=== PATIENT | male | born 1950 | race Caucasian/White ===

== ENCOUNTER 2017-09-10 08:56 | Emergency (ER) | payer BC ==
[2017-09-10] MEDS ORDERED: PROPARACAINE HCL OPTH 15ML BTL OPTH ONE (09:32)
--- NOTE | 2017-09-10 09:34 | Emergency Department Record ---
History of Present Illness - General Chief complaint: Eye Problem Stated complaint: l eye infection Time Seen by Provider: 09/10/17 09:13 Source: Patient Mode of Arrival: Ambulatory Limitations: No limitations - History of Present Illness Initial comments: pt started getting a red eye and irritation 2 days ago while wearing contacs. he now has discharge. he also has a productive cough and yellow rhinitis chief complaint: Eye pain, Eye redness Onset/Timin -: Days(s) Onset Description: Gradual Location: Left eye Place: Home Eye Symptoms: Redness Consistency: Constant Context: Contact lens use Treatments Prior to Arrival: Removed contact lens - Related Data Hx Tetanus Toxoid Vaccination: Yes Patient Tetanus UTD (within 5 yrs): No Previous Rx's Medication Instructions Recorded Azithromycin [Zithromax] 250 mg PO DAILY #6 tab 09/10/17 Gentamicin Sulfate 1 drop EACH EYE QID #30 ml 09/10/17 Allergies Allergy/AdvReac Type Severity Reaction Status Date / Time No Known Drug Allergies Allergy Verified 09/10/17 09:09 Travel Screening - Travel/Exposure Within Last 30 Days Have you traveled within the last 30 days?: No - Travel/Exposure Within Last Year Have you traveled outside the [place] in the last year?: No - Additonal Travel Details Have you been exposed to anyone with a communicable illness?: No - Travel Symptoms Symptom Screening: None Review of Systems Reviewed: No additional complaints except as noted below Constitutional: Reports: As per HPI. Denies: Chills, Fever, Malaise, Night sweats, Weakness, Weight change Eyes: Reports: As per HPI, Eye discharge, Eye pain. Denies: Photophobia, Vision change ENT: Reports: As per HPI, Congestion. Denies: Dental pain, Ear pain, Epistaxis , Hearing loss, Throat pain Respiratory: Reports: As per HPI, Cough. Denies: Dyspnea, Hemoptysis, Stridor, Wheezes Cardiovascular: Reports: As per HPI. Denies: Arrhythmia, Chest pain, Dyspnea on exertion, Edema, Murmurs, Orthopnea, Palpitations, Paroxysmal nocturnal dyspnea, Rheumatic Fever, Syncope Endocrine: Reports: As per HPI. Denies: Fatigue, Heat or cold intolerance, Polydipsia, Polyuria Gastrointestinal: Reports: As per HPI. Denies: Abdominal pain, Constipation, Diarrhea, Hematemesis, Hematochezia, Melena, Nausea, Vomiting Genitourinary: Reports: As per HPI. Denies: Dysuria, Frequency, Hematuria, Incontinence, Retention, Testicular pain, Testicular mass, Urgency Musculoskeletal: Reports: As per HPI. Denies: Arthralgia, Back pain, Gout, Joint swelling, Myalgia, Neck pain Skin: Reports: As per HPI. Denies: Bruising, Change in color, Change in hair/ nails, Lesions, Pruritus, Rash Neurological: Reports: As per HPI. Denies: Abnormal gait, Confusion, Headache, Numbness, Paresthesias, Seizure, Tingling, Tremors, Vertigo, Weakness Psychiatric: Reports: As per HPI. Denies: Anxiety, Auditory hallucinations, Depression, Homicidal thoughts, Suicidal thoughts, Visual hallucinations Hematological/Lymphatic: Reports: As per HPI. Denies: Anemia, Blood Clots, Easy bleeding, Easy bruising, Swollen glands Past Medical History - SOCIAL HISTORY Smoking Status: Never smoker Alcohol Use: Rare Drug Use: None - RESPIRATORY Hx Respiratory Disorders: No - CARDIOVASCULAR Hx Cardio Disorders: Yes Hx Hypertension: Yes Comment:: high cholesterol - NEURO Hx Neuro Disorders: No - GI Hx GI Disorders: Yes Hx Reflux: Yes Comment:: dysphagia - Hx Genitourinary Disorders: Yes Hx Kidney Stones: Yes - ENDOCRINE Hx Endocrine Disorders: Yes - MUSCULOSKELETAL Hx Musculoskeletal Disorders: Yes Hx Arthritis: Yes - PSYCH Hx Psych Problems: No - HEMATOLOGY/ONCOLOGY Hx Hematology/Oncology Disorders: No Family Medical History Any Significant Family History?: No Hx Dementia: Father, Mother Hx Diabetes: Mother, Grandparents Physical Exam - General General Appearance: Alert, Oriented x3, Cooperative, Mild distress - Head Head exam: Normal inspection - Eye Eye exam: Normal appearance, PERRL, Conjunctival injection, EOMI, Other ( flourscein negative for abrasion aor ulcer) Pupils: Normal accommodation - ENT ENT exam: Normal exam, Mucous membranes moist, Normal external ear exam, Normal orophraynx, TM's normal bilaterally Ear exam: Normal external inspection. negative: External canal tenderness Nasal Exam: Normal inspection. negative: Discharge, Sinus tenderness Mouth exam: Normal external inspection, Tongue normal Teeth exam: Normal inspection. negative: Dental caries Throat exam: Normal inspection. negative: Tonsillar erythema, Tonsillar exudate - Neck Neck exam: Normal inspection, Full ROM. negative: Tenderness - Respiratory Respiratory exam: Normal lung sounds bilaterally. negative: Respiratory distress - Cardiovascular Cardiovascular Exam: Regular rate, Normal rhythm, Normal heart sounds - GI/Abdominal GI/Abdominal exam: Soft, Normal bowel sounds. negative: Tenderness - Rectal Rectal exam: Deferred - exam: Deferred - Extremities Extremities exam: Normal inspection, Full ROM, Normal capillary refill. negative: Tenderness - Back Back exam: Reports: Normal inspection, Full ROM. Denies: Muscle spasm, Rash noted, Tenderness - Neurological Neurological exam: Alert, Normal gait, Oriented X3, Reflexes normal - Psychiatric Psychiatric exam: Normal affect, Normal mood - Skin Skin exam: Dry, Intact, Normal color, Warm Course Vital Signs 09/10/17 08:59 Temperature 98.7 F Pulse Rate 95 H Respiratory 20 Rate Blood Pressure 106/77 Pulse Ox 96 Disposition Disposition: Discharge Clinical Impression: Conjunctivitis Qualifiers: Conjunctivitis type: blepharoconjunctivitis Blepharoconjunctivitis type: contact Laterality: left Qualified Code(s): H10.532 - Contact blepharoconjunctivitis, left eye Sinusitis Qualifiers: Sinusitis location: unspecified location Chronicity: acute Recurrence: non- recurrent Qualified Code(s): J01.90 - Acute sinusitis, unspecified Disposition: Home, Self-Care Condition: (1) Good Instructions: Conjunctivitis (ED), Sinusitis (ED) Additional Instructions: follow up with family doctor. return sooner if worse. do not use same contacts. do not use any contacts till healed. use drops for 5 days Prescriptions: Azithromycin [Zithromax] 250 mg PO DAILY #6 tab Gentamicin Sulfate 1 drop EACH EYE QID #30 ml Quality - Quality Measures Quality Measures: Adult Sinusitis - Adult Sinusitis: CT Use Quality Measure: Measure #333: Adult Sinusitis Adult Sinusitis: CT for Acute Sinusitis: < CT NOT ordered or received within 28 Days > [G9350] - Blood Pressure Screening Does Patient Have Any of the Following: No Blood Pressure Classification: Normal BP Reading Systolic Measurement: 106 Diastolic Measurement: 77 Screening for High Blood Pressure: < Normal BP, F/U Not Required > [G8783]
== END 2017-09-10 09:55 | disposition home or self-care (01) ==
LOC: ER 08:56
DX: H10.53 Contact blepharoconjunctivitis (principal); J01.90 Acute sinusitis, unspecified; R05 Cough; I10 Essential (primary) hypertension
CPT/HCPCS: 99282

== ENCOUNTER 2018-07-27 12:18 | Day surgery (SDC) | payer BC ==
[2018-07-27] MEDS ORDERED: PROPOFOL 10 MG/ML VIAL IV ONE (12:19)
[2018-07-27] MEDS ORDERED: FENTANYL PF 100MCG/2ML VIAL IV ONE (12:19)
[2018-07-27] MEDS ORDERED: LIDOCAINE 2% MDV (20MG/ML) 20ML VIAL IV ONE (12:19)
--- NOTE | 2018-08-01 12:30 | Operative Note ---
DATE OF SURGERY: 07/27/2018 SURGEON: Tammy Kuo MD OPERATION: ESOPHAGOGASTRODUODENOSCOPY. INDICATIONS: This is a 68-year-old male with history of intermittens episodes of dysphagia who presented for esophagogastroduodenoscopy. POSTOPERATIVE DIAGNOSES: 1. Mild distal esophagitis but no specific stricture, status post Alejo dilatation to 60-Czech and biopsies to rule out eosinophilic esophagitis. 2. Normal stomach and duodenum. ANESTHESIA: Sedation is per Anesthesia. Pulse oximetry was monitored throughout the procedure to maintain O2 saturation of 90% or greater. Supplemental oxygen was administered via nasal cannula. Cardiac and vital signs were monitored throughout the duration of the procedure, and they were stable. The procedure of esophagogastroduodenoscopy and risks and benefits of the procedure, including the risk of bleeding and perforation, among others, were explained to the patient who voiced understanding and agreed to have the procedure done. Physical examination was performed, and the patient was found stable for sedation. PROCEDURE: The patient was placed in the left lateral position. Sedation was initiated. A plastic bite block was inserted into the oral cavity. The Olympus [id number] gastroscope was introduced into the oral cavity and advanced to the proximal esophagus without difficulty. The esophageal mucosa was carefully examined upon introduction of the gastroscope. The proximal and mid and distal esophageal mucosa appeared normal. In the GE junction, there was evidence of pinkish mucosa suggestive of short-segment Gan's mucosa. The gastroscope was then advanced into the stomach, and surveillance of the stomach revealed normal gastric body and antrum with no ulcers noted. The gastroscope was then advanced to the descending duodenum without difficulty. The duodenal bulb and descending duodenum appeared normal. The gastroscope was then withdrawn into the stomach and retroflexion was performed. There were no other lesions noted. The gastroscope was then straightened and withdrawn while carefully examining the gastric and esophageal mucosa. No other lesions noted. Multiple distal and mid esophageal biopsies were obtained. He remained with stable vital signs. Alejo dilator size 60-Czech was then passed into the stomach with mild resistance. The Alejo dilator was then withdrawn and the procedures were terminated. The patient tolerated procedure well without immediate complications. He remained with stable vital signs and was transferred to the recovery room. RECOMMENDATIONS: 1. The patient should continue his proton pump inhibitors. 2. I will see him back in the office as needed. Thank you for allowing me to participate in the care of your patient. CC: YUMIKO EARL MD, FACP LIZD
== END 2018-07-27 14:00 | disposition home or self-care (01) ==
LOC: HOP 12:18
PROVIDERS: ATTEND Internal Medicine Gastroenterology
DX: Z87.19 Personal history of other diseases of the digestive system (principal); K20.9 Esophagitis, unspecified; I10 Essential (primary) hypertension; E78.00 Pure hypercholesterolemia, unspecified; E11.9 Type 2 diabetes mellitus without complications; E03.9 Hypothyroidism, unspecified; M19.90 Unspecified osteoarthritis, unspecified site
CPT/HCPCS: 43239; 43450; 00731; J3010

== ENCOUNTER 2018-11-23 06:23 | Emergency (ER) | payer BC ==
--- NOTE | 2018-11-23 06:42 | Emergency Department Record ---
History of Present Illness - General Chief Complaint: Slurred speech Stated Complaint: STROKE Time Seen by Provider: 11/23/18 06:27 Source: Patient Mode of Arrival: Ambulatory Limitations: No limitations - History of Present Illness Initial Comments: pt came in stating he thinks hes having a stroke. he states he woke up this morning [90min ago] and had difficulty getting out of bed. he states both sides of his body wouldnt work, his speech was off and his equilibrium was off. he did not notice it more on one side or the other. he states it is gradually getting better. Onset/Timin -: Minutes(s) Location: Altered, Ataxia, Dysarthria History of same: No Place: Home Severity: Mild Quality: Improving Improves With: Time Worsens With: None On Anticoagulants: Yes (aspirin only) Associated Symptoms: Denies other symptoms - Related Data Allergies/Adverse Reactions: Allergies Allergy/AdvReac Type Severity Reaction Status Date / Time No Known Drug Allergies Allergy Verified 09/10/17 09:09 Review of Systems Reviewed: No additional complaints except as noted below Constitutional: Reports: As per HPI. Denies: Chills, Fever, Malaise, Night sweats, Weakness, Weight change Eyes: Reports: As per HPI. Denies: Eye discharge, Eye pain, Photophobia, Vision change ENT: Reports: As per HPI. Denies: Congestion, Dental pain, Ear pain, Epistaxis , Hearing loss, Throat pain Respiratory: Reports: As per HPI. Denies: Cough, Dyspnea, Hemoptysis, Stridor, Wheezes Cardiovascular: Reports: As per HPI. Denies: Arrhythmia, Chest pain, Dyspnea on exertion, Edema, Murmurs, Orthopnea, Palpitations, Paroxysmal nocturnal dyspnea, Rheumatic Fever, Syncope Endocrine: Reports: As per HPI. Denies: Fatigue, Heat or cold intolerance, Polydipsia, Polyuria Gastrointestinal: Reports: As per HPI. Denies: Abdominal pain, Constipation, Diarrhea, Hematemesis, Hematochezia, Melena, Nausea, Vomiting Genitourinary: Reports: As per HPI. Denies: Dysuria, Frequency, Hematuria, Incontinence, Retention, Testicular pain, Testicular mass, Urgency Musculoskeletal: Reports: As per HPI. Denies: Arthralgia, Back pain, Gout, Joint swelling, Myalgia, Neck pain Skin: Reports: As per HPI. Denies: Bruising, Change in color, Change in hair/ nails, Lesions, Pruritus, Rash Neurological: Reports: As per HPI, Abnormal gait, Weakness. Denies: Confusion, Headache, Numbness, Paresthesias, Seizure, Tingling, Tremors, Vertigo Psychiatric: Reports: As per HPI. Denies: Anxiety, Auditory hallucinations, Depression, Homicidal thoughts, Suicidal thoughts, Visual hallucinations Hematological/Lymphatic: Reports: As per HPI. Denies: Anemia, Blood Clots, Easy bleeding, Easy bruising, Swollen glands Past Medical History - SOCIAL HISTORY Smoking Status: Never smoker - RESPIRATORY Hx Respiratory Disorders: No Hx Asthma: No Hx Bronchitis: No Hx COPD: No Hx Dyspnea: No Hx Pneumonia: No Hx Pulmonary Embolism: No Hx Sleep Apnea: No Hx Tuberculosis: No - CARDIOVASCULAR Hx Cardio Disorders: Yes Hx Abnormal EKG: No Hx Cardiac Cath: No Hx Chest Pain: No Hx CHF: No Hx Edema: No Hx Heart Attack: No Hx Hypertension: Yes Hx Irregular Heartbeat: No Hx Palpitations: No Hx Pacemaker/Defib: No Hx Vascular Disease: No Hx Coronary Artery Disease: No Hx Coronary Artery Bypass Graft: No Hx Coronary Stent: No Comment:: high cholesterol - NEURO Hx Neuro Disorders: No Hx CVA: No Hx Dizziness: No Hx Headaches: No Hx of Migraines: No Hx Neuropathy: No Hx Parkinson's Disease: No Hx Seizures: No Hx Speech Problem: No Hx TIA: No Hx of Neuromuscular Disease: No Hx Weakness: No Hx Paralysis: No - GI Hx GI Disorders: Yes Hx Abdominal Pain: No Hx Diverticulitis: No Hx Reflux: Yes Hx Hepatitis/Jaundice: No Hx Irritable Bowel: No Hx Liver Disease: No Hx Nausea/Vomiting: No Hx Pancreatitis: No Hx Cirrhosis: No Hx of Polyps: No Comment:: dysphagia - Hx Genitourinary Disorders: Yes Hx Bladder Problem: No Hx Dialysis: No Hx Kidney Stones: Yes Hx Prostate Problems: No Hx Renal Disease: No Hx UTI: No - ENDOCRINE Hx Endocrine Disorders: Yes Hx Diabetes: Yes Hx Thyroid Disease: Yes - MUSCULOSKELETAL Hx Musculoskeletal Disorders: Yes Hx Arthritis: Yes Hx Back Injury: No Hx Fibromyalgia: No Hx Gout: No Hx Musculoskeletal Disease: No Hx Osteoporosis: No - PSYCH Hx Psych Problems: No Hx Anxiety: No Hx Depression: No - HEMATOLOGY/ONCOLOGY Hx Hematology/Oncology Disorders: Yes Hx Anemia: No Hx Blood Disorders: No Hx Bruising: No Hx Cancer: Yes (neck CA - HPV, per pt couple yrs ago) Hx Chemotherapy: Yes Hx Radiation Therapy: Yes Hx Clotting Problems: No Hx Blood Transfusions: No Hx Blood Transfusion Reaction: No Family Medical History Hx Dementia: Father, Mother Hx Diabetes: Mother, Grandparents Physical Exam - General General Appearance: Alert, Oriented x3, Cooperative, Mild distress - Head Head exam: Normal inspection - Eye Eye exam: Normal appearance, PERRL, EOMI Pupils: Normal accommodation - ENT ENT exam: Normal exam, Mucous membranes moist, Normal external ear exam, Normal orophraynx Ear exam: Normal external inspection. negative: External canal tenderness Nasal Exam: Normal inspection. negative: Discharge, Sinus tenderness Mouth exam: Normal external inspection, Tongue normal Teeth exam: Normal inspection. negative: Dental caries Throat exam: Normal inspection. negative: Tonsillar erythema, Tonsillar exudate - Neck Neck exam: Normal inspection, Full ROM. negative: Tenderness - Respiratory Respiratory exam: Normal lung sounds bilaterally. negative: Respiratory distress - Cardiovascular Cardiovascular Exam: Regular rate, Normal rhythm, Normal heart sounds - GI/Abdominal GI/Abdominal exam: Soft, Normal bowel sounds. negative: Tenderness - Rectal Rectal exam: Deferred - exam: Deferred - Extremities Extremities exam: Normal inspection, Full ROM, Normal capillary refill. negative: Tenderness - Back Back exam: Reports: Normal inspection, Full ROM. Denies: Muscle spasm, Rash noted, Tenderness - Neurological Neurological exam: Alert, CN II-XII intact, Normal gait, Oriented X3 - Psychiatric Psychiatric exam: Normal affect, Normal mood - Skin Skin exam: Dry, Intact, Normal color, Warm Stroke Assessment - NIH Stroke Scale 1a. Level of Consciousness: (0) Alert 1b. LOC Questions: (0) Answers Correctly 1c. LOC Commands: (0) Performs Tasks Correctly 2. Best Gaze: (0) Normal 3. Visual: (0) No Visual Loss 4. Facial Palsy: (0) Normal Symmetrical Movement 5a. Motor Arm Left: (0) No Drift 5b. Motor Arm Right: (0) No Drift 6a. Motor Leg Left: (0) No Drift 6b. Motor Leg Right: (0) No Drift 7. Limb Ataxia: (0) Absent 8. Sensory: (0) Normal 9. Best Language: (0) No Aphasia 10. Dysarthria: (0) Normal 11. 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 ] Respiratory 24 Rate Blood Pressure 148/90 [Right Arm] Pulse Ox 99 - Reevaluation(s) Reevaluation #1: 11/23/18 06:50 care is being turned over to dr matthews Medical Decision Making - Lab Data Result diagrams: 11/23/18 06:46 11/23/18 06:46 Disposition Forms: Patient Portal Access Quality - Quality Measures Quality Measures: N/A - Blood Pressure Screening Does Patient Have Any of the Following: No Blood Pressure Classification: Hypertensive Reading Systolic Measurement: 148 Diastolic Measurement: 90 Screening for High Blood Pressure: < First Hypertensive BP, F/U Documented > [ G8950] First Hypertensive Follow-up Interventions: Follow-up with rescreen GT 1 day and LT 4 weeks.
[2018-11-23 06:56] LABS: HEMATOCRIT 42.9 % (42.0-52.0); HEMOGLOBIN 14.5 gm/dl (14.0-18.0); MEAN CELL VOLUME 94.5 fl (81-97); MEAN CORPUSCULAR HEMOGLOBIN 31.9 pg (27-33); MEAN CORPUSCULAR HGB CONC 33.8 g/dl (32-36); MEAN PLATELET VOLUME 8.9 fl (7.4-10.4); PLATELET COUNT 205 K/uL (130-400); RED BLOOD COUNT 4.54 M/uL (4.40-5.70); RED CELL DISTRIBUTION WIDTH 13.1 % (11.5-14.5); WHITE BLOOD COUNT W/O DIFF 4.5 K/uL (4.2-12.2)
--- NOTE | 2018-11-23 07:02 | Emergency Department Record ---
History of Present Illness - General Chief Complaint: Slurred speech Stated Complaint: STROKE Time Seen by Provider: 11/23/18 06:27 Source: Patient Mode of Arrival: Ambulatory Limitations: No limitations - History of Present Illness Initial Comments: Took over from Dr Rendon and patient going to CT scan. 7AM . Patient said at 4 am he wake up and he felt he could not move his hands or feet and he was incontient of stool and urine. He said he had slurrred speech and he denies headache or pain anywhere. His girlfriend brought him in for evaluation and he thought he was having a stroke. [facility] Throat cancer three years ago and had radiation treatments and chemotherapy and no surgery. Seeing Dr Aldana every [address] [facility] [place] every 6 months. for throat scopes. 4 days ago ate meat and felt nauseated and has diarrhea 4-5 times a day. He has been using peptobismal and he also had a couple mixed drinks last night and took an ambian sleeping pill. Patient lives alone. He called his girlfriend Onset/Timin -: Minutes(s) Location: Altered, Ataxia, Dysarthria History of same: No Place: Home Severity: Mild Quality: Improving Improves With: Time Worsens With: None On Anticoagulants: Yes (aspirin only) Context: Sudden onset Associated Symptoms: Denies other symptoms Treatments Prior to Arrival: None - Liam Coma Scale Eye Response: (4) Open spontaneously Motor Response: (6) Obeys commands Verbal Response: (5) Oriented Liam Total: 15 - Symptoms of Stroke Onset of Symptoms Date: 11/23/18 Onset of Symptoms Time: 05:15 Symptom Onset Unknown: No Symptoms of stroke: Incoherent Speech, Muscle Weakness, Slurred Speech, Unable to Walk, Unsteady When Walking, Vertigo - Related Data Allergies/Adverse Reactions: Allergies Allergy/AdvReac Type Severity Reaction Status Date / Time No Known Drug Allergies Allergy Verified 09/10/17 09:09 Travel Screening - Travel/Exposure Within Last 30 Days Have you traveled within the last 30 days?: No - Travel/Exposure Within Last Year Have you traveled outside the [place] in the last year?: No - Additonal Travel Details Have you been exposed to anyone with a communicable illness?: No - Travel Symptoms Symptom Screening: None Review of Systems Constitutional: Reports: As per HPI. Denies: Chills, Fever, Malaise, Night sweats, Weakness, Weight change Eyes: Reports: As per HPI. Denies: Eye discharge, Eye pain, Photophobia, Vision change ENT: Reports: As per HPI. Denies: Congestion, Dental pain, Ear pain, Epistaxis , Hearing loss, Throat pain Respiratory: Reports: As per HPI. Denies: Cough, Dyspnea, Hemoptysis, Stridor, Wheezes Cardiovascular: Reports: As per HPI. Denies: Arrhythmia, Chest pain, Dyspnea on exertion, Edema, Murmurs, Orthopnea, Palpitations, Paroxysmal nocturnal dyspnea, Rheumatic Fever, Syncope Endocrine: Reports: As per HPI. Denies: Fatigue, Heat or cold intolerance, Polydipsia, Polyuria Gastrointestinal: Reports: As per HPI. Denies: Abdominal pain, Constipation, Diarrhea, Hematemesis, Hematochezia, Melena, Nausea, Vomiting Genitourinary: Reports: As per HPI. Denies: Dysuria, Frequency, Hematuria, Incontinence, Retention, Testicular pain, Testicular mass, Urgency Musculoskeletal: Reports: As per HPI. Denies: Arthralgia, Back pain, Gout, Joint swelling, Myalgia, Neck pain Skin: Reports: As per HPI. Denies: Bruising, Change in color, Change in hair/ nails, Lesions, Pruritus, Rash Neurological: Reports: As per HPI, Abnormal gait, Weakness. Denies: Confusion, Headache, Numbness, Paresthesias, Seizure, Tingling, Tremors, Vertigo Psychiatric: Reports: As per HPI. Denies: Anxiety, Auditory hallucinations, Depression, Homicidal thoughts, Suicidal thoughts, Visual hallucinations Hematological/Lymphatic: Reports: As per HPI. Denies: Anemia, Blood Clots, Easy bleeding, Easy bruising, Swollen glands Past Medical History - SOCIAL HISTORY Smoking Status: Never smoker - RESPIRATORY Hx Respiratory Disorders: No Hx Asthma: No Hx Bronchitis: No Hx COPD: No Hx Dyspnea: No Hx Pneumonia: No Hx Pulmonary Embolism: No Hx Sleep Apnea: No Hx Tuberculosis: No - CARDIOVASCULAR Hx Cardio Disorders: Yes Hx Abnormal EKG: No Hx Cardiac Cath: No Hx Chest Pain: No Hx CHF: No Hx Edema: No Hx Heart Attack: No Hx Hypertension: Yes Hx Irregular Heartbeat: No Hx Palpitations: No Hx Pacemaker/Defib: No Hx Vascular Disease: No Hx Coronary Artery Disease: No Hx Coronary Artery Bypass Graft: No Hx Coronary Stent: No Comment:: high cholesterol - NEURO Hx Neuro Disorders: No Hx CVA: No Hx Dizziness: No Hx Headaches: No Hx of Migraines: No Hx Neuropathy: No Hx Parkinson's Disease: No Hx Seizures: No Hx Speech Problem: No Hx TIA: No Hx of Neuromuscular Disease: No Hx Weakness: No Hx Paralysis: No - GI Hx GI Disorders: Yes Hx Abdominal Pain: No Hx Diverticulitis: No Hx Reflux: Yes Hx Hepatitis/Jaundice: No Hx Irritable Bowel: No Hx Liver Disease: No Hx Nausea/Vomiting: No Hx Pancreatitis: No Hx Cirrhosis: No Hx of Polyps: No Comment:: dysphagia - Hx Genitourinary Disorders: Yes Hx Bladder Problem: No Hx Dialysis: No Hx Kidney Stones: Yes Hx Prostate Problems: No Hx Renal Disease: No Hx UTI: No - ENDOCRINE Hx Endocrine Disorders: Yes Hx Diabetes: Yes Hx Thyroid Disease: Yes - MUSCULOSKELETAL Hx Musculoskeletal Disorders: Yes Hx Arthritis: Yes Hx Back Injury: No Hx Fibromyalgia: No Hx Gout: No Hx Musculoskeletal Disease: No Hx Osteoporosis: No - PSYCH Hx Psych Problems: No Hx Anxiety: No Hx Depression: No - HEMATOLOGY/ONCOLOGY Hx Hematology/Oncology Disorders: Yes Hx Anemia: No Hx Blood Disorders: No Hx Bruising: No Hx Cancer: Yes (neck CA - HPV, per pt couple yrs ago) Hx Chemotherapy: Yes Hx Radiation Therapy: Yes Hx Clotting Problems: No Hx Blood Transfusions: No Hx Blood Transfusion Reaction: No Family Medical History Hx Dementia: Father, Mother Hx Diabetes: Mother, Grandparents Physical Exam - General General Appearance: Alert, Oriented x3, Cooperative, No acute distress Limitations: No limitations - Head Head exam: Normal inspection - Eye Eye exam: Normal appearance, PERRL Pupils: Normal accommodation - ENT ENT exam: Normal exam, Mucous membranes moist, Normal external ear exam, Normal orophraynx, TM's normal bilaterally Ear exam: Normal external inspection. negative: External canal tenderness Nasal Exam: Normal inspection. negative: Discharge, Sinus tenderness Mouth exam: Normal external inspection, Tongue normal Teeth exam: Normal inspection. negative: Dental caries Throat exam: Normal inspection. negative: Tonsillar erythema, Tonsillar exudate - Neck Neck exam: Normal inspection, Full ROM. negative: Tenderness - Respiratory Respiratory exam: Normal lung sounds bilaterally. negative: Respiratory distress - Cardiovascular Cardiovascular Exam: Regular rate, Normal rhythm, Normal heart sounds - GI/Abdominal GI/Abdominal exam: Soft, Normal bowel sounds. negative: Tenderness - Rectal Rectal exam: Deferred - exam: Deferred - Extremities Extremities exam: Normal inspection, Full ROM, Normal capillary refill. negative: Tenderness - Back Back exam: Reports: Normal inspection, Full ROM. Denies: Muscle spasm, Rash noted, Tenderness - Neurological Neurological exam: Alert, CN II-XII intact, Motor sensory deficit, Normal gait, Oriented X3, Reflexes normal, Other (able to stand and stand on his toes and he feels back to the baseline.) - Psychiatric Psychiatric exam: Normal affect, Normal mood - Skin Skin exam: Dry, Intact, Normal color, Warm Course Vital Signs 11/23/18 06:31 Pulse Rate [ 75 [employer] ] Respiratory 24 Rate Blood Pressure 148/90 [Right Arm] Pulse Ox 99 - Reevaluation(s) Reevaluation #1: It sounds like he may have had a seizure and was incontinent of stool and urine. He sounds like he was postictal. 11/23/18 07:48 Reevaluation #2: possible seizure and I talked to him about needing outpatient test like an EEG or MRI of the brain. Continue current meds. Stop driving for 6 months. 11/23/18 08:38 Medical Decision Making - Data Complexity MDM Data: Labs Ordered and/or Reviewed (unremarkable labs), X-Ray Ordered and/ or Reviewed (CT Head negative), EKG Ordered and/or Reviewed (EKG NSR , no acute changes) - Lab Data Result diagrams: 11/23/18 06:30 11/23/18 06:30 Lab Results 11/23/18 Range/Units 06:30 WBC 4.5 (4.2-12.2) K/uL RBC 4.54 (4.40-5.70) M/uL Hgb 14.5 (14.0-18.0) gm/dl Hct 42.9 (42.0-52.0) % MCV 94.5 (81-97) fl MCH 31.9 (27-33) pg MCHC 33.8 (32-36) g/dl RDW 13.1 (11.5-14.5) % Plt Count 205 (130-400) K/uL MPV 8.9 (7.4-10.4) fl Eosinophils % Not Reportable Basophils % Not Reportable Disposition Clinical Impression: TIA (transient ischemic attack), History of throat cancer Disposition: Home, Self-Care Condition: (1) Good Instructions: Transient Ischemic Attack (ED) Additional Instructions: follow up with DR. Salomon on monday if another episode should go to [place] [facility] where MRI and EEG are available Do not drink alcohol and take ambian same time Forms: Patient Portal Access Time of Disposition: 08:46 Quality - Quality Measures Quality Measures: N/A - Blood Pressure Screening Does Patient Have Any of the Following: No Blood Pressure Classification: Normal BP Reading Systolic Measurement: 118 Diastolic Measurement: 70 Screening for High Blood Pressure: < Normal BP, F/U Not Required > [G8783]
[2018-11-23 07:05] LABS: BLOOD UREA NITROGEN 21 mg/dL (8-23); CREATININE 1.1 mg/dL (0.7-1.2); EST GLOMERULAR FILTRATION RATE > 60 mL/min
[2018-11-23 07:06] LABS: TOTAL PROTEIN 6.6 g/dL (6.6-8.7)
[2018-11-23 07:07] LABS: PARTIAL THROMBOPLASTIN TIME 26.1 SECONDS (24.5-39.1); PROTHROMBIN TIME (PATIENT) 9.7 SECONDS (9.5-12.1)
[2018-11-23 07:08] LABS: GLUCOSE,RANDOM 130 mg/dL (74-109)
[2018-11-23 07:10] LABS: ALT/SGPT 37 U/L (<41); AST/SGOT 32 U/L (10.0-50.0)
[2018-11-23 07:11] LABS: ALB/GLOB RATIO 1.6 (1.1-1.8); ALBUMIN 4.1 g/dL (4.0-5.0); ALKALINE PHOSPHATASE 42 U/L (40-129); CREATINE PHOSPHOKINASE 79 U/L (39-308)
[2018-11-23 07:13] LABS: CKMB 2.1 ng/mL (<6.73)
[2018-11-23 07:19] LABS: PLATELET ESTIMATE NORMAL (NORMAL)
[2018-11-23 08:18] LABS: URINE APPEARANCE CLEAR; URINE BILIRUBIN NEGATIVE (NEGATIVE); URINE BLOOD TRACE-I (NEGATIVE); URINE COLOR YELLOW; URINE GLUCOSE (UA) NEGATIVE (NEGATIVE); URINE KETONE 40 mg/dL (NEGATIVE); URINE LEUKOCYTE ESTERASE NEGATIVE (NEGATIVE); URINE NITRITE NEGATIVE (NEGATIVE); URINE PROTEIN NEGATIVE (NEGATIVE); URINE UROBILINOGEN 0.2 E.U./dL (0.20 - 1.00)
[2018-11-23 08:21] LABS: AMPHETAMINE SCREEN URINE NOT DETECTED; BARBITURATE SCREEN URINE NOT DETECTED; BENZODIAZEPINE SCREEN URINE NOT DETECTED; COCAINE SCREEN URINE NOT DETECTED; METHADONE SCREEN URINE NOT DETECTED; METHAMPHETAMINE SCREEN NOT DETECTED; OPIATE SCREEN URINE NOT DETECTED; OXYCODONE SCREEN URINE NOT DETECTED; PHENCYCLIDINE SCREEN URINE NOT DETECTED; PROPOXYPHENE SCREEN URINE NOT DETECTED; THC SCREEN URINE NOT DETECTED; TRICYCLIC ANTIDEPRESSANT SCRN NOT DETECTED
[2018-11-23 08:24] LABS: URINE EPITHELIAL CELLS NONE SEEN (FEW); URINE RBC 0 - 2 (NONE SEEN); URINE WBC NONE SEEN (0-2/hpf)
--- NOTE | 2018-11-23 21:34 | CT SCAN REPORT ---
EXAM: CT SCAN HEAD WO CONTRAST HISTORY: CEREBRAL VASCULAR ACCIDENT. TECHNIQUE: Sequential axial images were obtained from the foramen magnum to the vertex without contrast administration. FINDINGS: Brain volume is normal. No large territorial infarct, hemorrhage, mass effect, or midline shift. No extraaxial fluid collection. There is intracranial vascular calcification. Orbits, paranasal sinuses, and mastoid air cells are normal. IMPRESSION: NO ACUTE INTRACRANIAL ABNORMALITY BY CT EXAMINATION. JOB NUMBER: [id number] MTDD
== END 2018-11-23 09:06 | disposition home or self-care (01) ==
LOC: ER 06:23
DX: G45.9 Transient cerebral ischemic attack, unspecified (principal); I10 Essential (primary) hypertension; Z85.818 Personal history of malignant neoplasm of other sites of lip, oral cavity, and pharynx
CPT/HCPCS: 70450; 80053; 80305; 81001; 82550; 82553; 85027; 85610; 85730; 93005; 93010; 99284